=== PATIENT | female | born 1990 | race African-American/Black ===

== ENCOUNTER 2019-09-28 09:05 | Emergency (ER) | payer BC ==
[2019-09-28 10:26] LABS: APPEARANCE,URINE SLIGHTLY-CLOUDY; BILIRUBIN,URINE NEGATIVE (NEGATIVE); COLOR,URINE AMBER; GLUCOSE, URINE NEGATIVE (NEGATIVE); KETONES,URINE NEGATIVE (NEGATIVE); LEUKOCYTE ESTERASE,URINE NEGATIVE (NEGATIVE); NITRITE,URINE NEGATIVE (NEGATIVE); PROTEIN,URINE 30 mg/dL (NEGATIVE); URINE SPECIFIC GRAVITY 1.032
[2019-09-28 11:02] LABS: ABSOLUTE EOSINOPHILS # (AUTO) 0.1 10^3/uL (0.0-0.6); ABSOLUTE LYMPHOCYTES (AUTO) 1.1 10^3/uL (0.5-4.7); ABSOLUTE MONOCYTES (AUTO) 0.4 10^3/uL (0.1-1.4); BASOPHILS % (AUTO) 0.1 % (0-2); EOSINOPHILS % (AUTO) 0.9 % (0-6); HEMATOCRIT 36.9 % (36.0-47.0); HEMOGLOBIN 12.9 g/dL (12.0-15.5); LYMPHOCYTES % (AUTO) 15.1 % (13-45); MEAN CORPUSCULAR HEMOGLOBIN 30.1 pg (27.0-33.4); MEAN CORPUSCULAR HGB CONC 34.9 g/dL (32.0-36.0); MEAN CORPUSCULAR VOLUME 86 fl (80-97); PLATELET COUNT 142 10^3/uL (150-450); RED BLOOD COUNT 4.28 10^6/uL (3.72-5.28); RED CELL DISTRIBUTION WIDTH 12.8 % (11.5-14.0); SEGMENTED NEUTROPHILS % (AUTO) 78.9 % (42-78); TOTAL CELLS COUNTED % (AUTO) 100 %; WHITE BLOOD COUNT 7.6 10^3/uL (4.0-10.5)
[2019-09-28] MEDS ORDERED: NORMAL SALINE 1000 ML 2,000 ML IV ONE (14:41)
[2019-09-28] MEDS ORDERED: PROMETHAZINE HCL 25 MG TABLET PO ONE (14:41)
--- NOTE | 2019-09-28 14:42 | ER Document Report ---
ED GI/ - General Chief Complaint: Vag Bleeding, +preg <12wks Stated Complaint: LIGHTHEADED,VAGINAL BLEEDING Time Seen by Provider: 09/28/19 14:22 Primary Care Provider: JUAN PABLO YODER CRNP [NO LOCAL MD] - Follow up as needed Mode of Arrival: Ambulatory Information source: Patient Notes: Patient is currently 10 weeks G3, P2. Patient reports vaginal bleeding for the past 3 days. Patient does complain of some nausea. Patient denies any concern about STI. Patient is followed up by [facility]. TRAVEL OUTSIDE OF THE [place] IN LAST 30 DAYS: No - HPI Patient complains to provider of: , Vaginal bleeding Onset: Other - 3 days Quality of pain: No pain Pain Level: Denies Vaginal bleeding (Compared to normal period): Green [employer], Dark brown Menstrual period history: Associated symptoms: denies: Dysuria, Fever, Nausea, Urinary hesitancy, Urinary frequency, Urinary retention, Urinary urgency, Vaginal discharge, Vomiting Exacerbated by: Denies Relieved by: Denies Similar symptoms previously: No Recently seen / treated by doctor: No - Related Data Allergies/Adverse Reactions: No Known Allergies Allergy (Verified 09/28/19 09:49) Home Medications: prenatals Past Medical History - General Information source: Patient - Social History Smoking Status: Never Smoker Chew tobacco use (# tins/day): No Frequency of alcohol use: None Drug Abuse: None Occupation: none Family History: Reviewed & Not Pertinent Patient has suicidal ideation: No Patient has homicidal ideation: No - Medical History Medical History: Negative Past Surgical History: Reports: Hx Gynecologic Surgery - ovarian cyst removed Review of Systems - Review of Systems Constitutional: No symptoms reported. denies: Fever EENT: No symptoms reported Cardiovascular: No symptoms reported. denies: Chest pain Respiratory: No symptoms reported Gastrointestinal: Nausea. denies: Abdominal pain, Vomiting Genitourinary: No symptoms reported Female Genitourinary: , Vaginal bleeding. denies: Vaginal discharge Musculoskeletal: No symptoms reported. denies: Back pain Skin: No symptoms reported Hematologic/Lymphatic: No symptoms reported Neurological/Psychological: No symptoms reported Physical Exam - Vital signs Vitals: Temp Pulse Resp BP Pulse Ox 99.1 F 94 18 142/85 H 98 09/28/19 09:22 09/28/19 09:22 09/28/19 09:22 09/28/19 09:22 09/28/19 09:22 - General General appearance: Appears well, Alert In distress: None - HEENT Head: Normocephalic, Atraumatic Eyes: Normal Conjunctiva: Normal Nasal: Normal Mouth/Lips: Normal Mucous membranes: Normal Pharynx: Normal Neck: Normal, Supple. No: Lymphadenopathy - Respiratory Respiratory status: No respiratory distress Chest status: Nontender Breath sounds: Normal. No: Rales, Rhonchi, Stridor, Wheezing Chest palpation: Normal - Cardiovascular Rhythm: Regular Heart sounds: S1 appreciated, S2 appreciated - Abdominal Inspection: Normal Distension: No distension Bowel sounds: Normal Tenderness: Nontender Organomegaly: No organomegaly - Back Back: Normal, Nontender. No: CVA tenderness - Extremities General upper extremity: Normal inspection, Nontender, Normal strength General lower extremity: Normal inspection, Nontender, Normal strength - Neurological Neuro grossly intact: Yes Cognition: Normal [place] Coma Scale Eye Opening: Spontaneous Kiran Coma Scale Verbal: Oriented Kiran Coma Scale Motor: Obeys Commands Kiran Coma Scale Total: 15 - Psychological Associated symptoms: Normal affect, Normal mood - Skin Skin Temperature: Warm Skin Moisture: Dry Skin Color: Normal Course - Re-evaluation Re-evalutation: 09/28/19 16:22 Patient reports light vaginal bleeding at this time. Patient does have a subchorionic hematoma noted on ultrasound and is currently 9 weeks 3 days . Patient with nausea without vomiting. Patient has been taking Diclegis without improvement of her symptoms. Will provide patient with prescription for Phenergan and encourage outpatient follow-up with her [facility] for recheck. - Vital Signs Vital signs: Temp Pulse Resp BP Pulse Ox 98.7 F 77 20 127/77 H 100 09/28/19 16:48 09/28/19 16:48 09/28/19 16:48 09/28/19 16:48 09/28/19 16:48 - Laboratory Result Diagrams: 09/28/19 10:30 Laboratory results interpreted by me: 09/28/19 09/28/19 09/28/19 10:05 10:30 10:30 Plt Count 142 L Seg Neutrophils % 78.9 H Beta HCG, Quant 763200.00 H Urine Protein 30 H Urine Urobilinogen 4.0 H Urine HCG, Qual POSITIVE H 09/28/19 16:22 Labs- Entire Visit 09/28/19 09/28/19 09/28/19 10:05 10:30 10:30 WBC 7.6 RBC 4.28 Hgb 12.9 Hct 36.9 MCV 86 MCH 30.1 MCHC 34.9 RDW 12.8 Plt Count 142 L Lymph % (Auto) 15.1 [place] % (Auto) 5.0 Eos % (Auto) 0.9 Baso % (Auto) 0.1 Absolute Neuts (auto) 6.0 Absolute Lymphs (auto) 1.1 Absolute Monos (auto) 0.4 Absolute Eos (auto) 0.1 Absolute Basos (auto) 0.0 Seg Neutrophils % 78.9 H Beta HCG, Quant Total Beta HCG Urine Color ARACELI Urine Appearance SLIGHTLY-CLOUDY Urine pH 6.0 Ur Specific [place] 1.032 Urine Protein 30 H Urine Glucose (UA) NEGATIVE Urine Ketones NEGATIVE Urine Blood NEGATIVE Urine Nitrite NEGATIVE Urine Bilirubin NEGATIVE Urine Urobilinogen 4.0 H Ur Leukocyte Esterase NEGATIVE Urine WBC (Auto) 1 Urine RBC (Auto) 1 Squamous Epi Cells Auto <1 Urine Mucus (Auto) MANY Urine Ascorbic Acid NEGATIVE Urine HCG, Qual POSITIVE H Blood Type O POSITIVE Rhogam Indicated RHOGAM NOT INDICATED 09/28/19 10:30 WBC RBC Hgb Hct MCV MCH MCHC RDW Plt Count Lymph % (Auto) [place] % (Auto) Eos % (Auto) Baso % (Auto) Absolute Neuts (auto) Absolute Lymphs (auto) Absolute Monos (auto) Absolute Eos (auto) Absolute Basos (auto) Seg Neutrophils % Beta HCG, Quant 044782.00 H Total Beta HCG POSITIVE Urine Color Urine Appearance Urine pH Ur Specific Follett Urine Protein Urine Glucose (UA) Urine Ketones Urine Blood Urine Nitrite Urine Bilirubin Urine Urobilinogen Ur Leukocyte Esterase Urine WBC (Auto) Urine RBC (Auto) Squamous Epi Cells Auto Urine Mucus (Auto) Urine Ascorbic Acid Urine HCG, Qual Blood Type Rhogam Indicated - Diagnostic Test Radiology reviewed: Reports reviewed Discharge - Discharge Clinical Impression: Nausea, Vagina bleeding Subchorionic bleed Qualifiers: Fetus number: single or unspecified fetus Trimester: first trimester Qualified Code(s): O41.8X10 - Other specified disorders of amniotic fluid and membranes, first trimester, not applicable or unspecified Condition: Stable Disposition: HOME, SELF-CARE Instructions: Antinausea Medication ([facility]), Bleeding During Early ([facility]), Intravenous (IV) Fluids ([facility]), Nausea or Vomiting, Nonspecific ([facility]) Additional Instructions: Return immediately for any new or worsening symptoms Followup with your primary care provider, call tomorrow to make a followup appointment Increase oral fluids and stay well-hydrated Prescriptions: Promethazine HCl [Phenergan 25 mg Tablet] 25 mg PO Q6H PRN #10 tablet PRN Reason: Referrals: JUAN PABLO YODER CRNP [NO LOCAL MD] - Follow up as needed
--- NOTE | 2019-09-28 16:14 | RADIOLOGY REPORT (SQ) ---
EXAM DESCRIPTION: U/S OB TRANSVAGINAL W/O DOP COMPLETED DATE/TIME: 09/28/2019 4:03 pm REASON FOR STUDY: vag bleeding COMPARISON: None. TECHNIQUE: Transvaginal static and realtime grayscale images acquired of the pelvis. Additional kali cted spectral and color Doppler images recorded. All images stored on PACs. [id number] CLINICAL DATES: 10 week 1 day LIMITATIONS: None. FINDINGS: FETUS: Single Living intrauterine . ULTRASOUND EGA: 9 week 3 day ULTRASOUND MARCO ANTONIO: 04/29/2020 EFW: Not applicable less than 20 weeks. CRL: 2.6 cm, 9 week 3 day FHR: 175 beats per minute. SURVEY: Too early to assess. AMNIOTIC FLUID: Adequate amount. PLACENTA: Not yet developed due to early gestation. SUBCHORIONIC BLEED: Lower uterine segment hypoechoic region measures 4 cm. SIZE OF BLEED: As above. UTERUS: No masses. No anomalies. CERVICAL LENGTH: 3.7 cm Closed. RIGHT ADNEXA: Normal ovary with normal vascular flow. No adnexal free fluid. 1.7 cm minimally complicated cyst suggested. LEFT ADNEXA: Normal ovary with normal vascular flow. No adnexal free fluid. No adnexal masses. FREE FLUID: None. OTHER: No other significant finding. IMPRESSION: LIVING INTRAUTERINE . LOWER UTERINE SEGMENT 4 CM SUBCHORIONIC HEMATOMA. EGA 9 week 3 day Trimester of : First trimester - 0 to 13 weeks. TECHNICAL DOCUMENTATION: JOB ID: [id number] [employer]- All Rights Reserved rev Reading location - IP/workstation name: [email or web address]
[2019-09-28 16:49] VITALS: BP 127/77
== END 2019-09-28 17:27 | disposition home or self-care (01) ==
LOC: ER 09:05
DX: O46.91 Antepartum hemorrhage, unspecified, first trimester (principal); O26.891 Other specified pregnancy related conditions, first trimester; R42 Dizziness and giddiness; R11.0 Nausea; Z3A.10 10 weeks gestation of pregnancy
CPT/HCPCS: 99284; 96360; 96361; 86900; 86901; 36415; 84702; 85025; 81025; 81001; 76817; J7030

== ENCOUNTER 2020-09-19 09:41 | Emergency (ER) | payer BC ==
--- NOTE | 2020-09-19 10:10 | ER Document Report ---
ED Medical Screen (RME) - General Chief Complaint: Chest Pain Stated Complaint: CHEST PAIN Time Seen by Provider: 09/19/20 10:05 Mode of Arrival: Ambulatory Information source: Patient Notes: HPI; 29-year-old female with no previous medical problems presents to the emergency room complaining of sudden onset of sharp stabbing left-sided chest pain that started around 8 AM this morning. No nausea, no vomiting, no shortness of breath difficulty breathing. No diaphoresis. No trauma no injury. States she took Tylenol without relief. Patient is currently breast-feeding but denies any erythema, swelling, or concerns for mastitis to the left breast. PE: Alert and oriented x3. Lungs: Clear to auscultation without rales, rhonchi, wheezes. Heart: Regular rate rhythm without murmurs, rubs, gallops. I have greeted and performed a rapid initial assessment of this patient. A comprehensive ED assessment and evaluation of the patient, analysis of test results and completion of the medical decision making process will be conducted by additional ED providers. I have specifically instructed the patient or family members with the patient to immediately return to any nursing staff shou ld anything change in the patient's condition or with their chief complaint. TRAVEL OUTSIDE OF THE [place] IN LAST 30 DAYS: No - Related Data Allergies/Adverse Reactions: No Known Allergies Allergy (Verified 09/19/20 09:59) Past Medical History Past Surgical History: Reports: Hx Gynecologic Surgery - ovarian cyst removed Physical Exam - Vital signs Vitals: Temp Pulse Resp BP Pulse Ox 98.1 F 67 16 131/84 H 97 09/19/20 09:50 09/19/20 09:50 09/19/20 09:50 09/19/20 09:50 09/19/20 09:50 Course - Vital Signs Vital signs: Temp Pulse Resp BP Pulse Ox 98.1 F 67 16 131/84 H 97 09/19/20 09:50 09/19/20 09:50 09/19/20 09:50 09/19/20 09:50 09/19/20 09:50
[2020-09-19 10:35] LABS: ABSOLUTE EOSINOPHILS # (AUTO) 0.1 10^3/uL (0.0-0.6); ABSOLUTE LYMPHOCYTES (AUTO) 1.4 10^3/uL (0.5-4.7); ABSOLUTE MONOCYTES (AUTO) 0.3 10^3/uL (0.1-1.4); BASOPHILS % (AUTO) 0.4 % (0-2); EOSINOPHILS % (AUTO) 2.5 % (0-6); HEMATOCRIT 39.4 % (36.0-47.0); HEMOGLOBIN 13.5 g/dL (12.0-15.5); MEAN CORPUSCULAR HEMOGLOBIN 29.3 pg (27.0-33.4); MEAN CORPUSCULAR HGB CONC 34.3 g/dL (32.0-36.0); MEAN CORPUSCULAR VOLUME 85 fl (80-97); MONOCYTES % (AUTO) 6.8 % (3-13); PLATELET COUNT 169 10^3/uL (150-450); RED BLOOD COUNT 4.62 10^6/uL (3.72-5.28); SEGMENTED NEUTROPHILS % (AUTO) 61.3 % (42-78); TOTAL CELLS COUNTED % (AUTO) 100 %
--- NOTE | 2020-09-19 10:42 | RADIOLOGY REPORT (SQ) ---
EXAM DESCRIPTION: CHEST 2 VIEWS IMAGES COMPLETED DATE/TIME: 09/19/2020 10:27 am REASON FOR STUDY: chest pain COMPARISON: None. TECHNIQUE: Frontal and lateral radiographic views of the chest acquired. NUMBER OF VIEWS: Two view. LIMITATIONS: None. FINDINGS: LUNGS AND PLEURA: No opacities, masses or pneumothorax. No pleural effusion. MEDIASTINUM AND HILAR STRUCTURES: No masses or contour abnormalities. HEART AND VASCULAR STRUCTURES: Heart normal size. No evidence for failure. BONES: No acute findings. HARDWARE: None in the chest. OTHER: No other significant finding. IMPRESSION: NO SIGNIFICANT RADIOGRAPHIC FINDING IN THE CHEST. TECHNICAL DOCUMENTATION: JOB ID: [id number] 2010 [employer]- All Rights Reserved Reading location - IP/workstation name: [email or web address]
--- NOTE | 2020-09-19 10:45 | ER Document Report ---
ED Cardiac - General Chief Complaint: Chest Pain Stated Complaint: CHEST PAIN Time Seen by Provider: 09/19/20 10:05 Primary Care Provider: ANDRES,FILI [Primary Care Provider] - Follow up as needed Mode of Arrival: Ambulatory Notes: CHIEF COMPLAINT: Chest pain HPI: 29-year-old female who is otherwise healthy not on any control presenting for evaluation of left-sided chest pain that began around 8 AM this morning while making breakfast. Pain changes with position or movement of the l eft arm deep breathing twisting or turning the torso. Does not radiate into the neck back shoulder or arm. Took no medications for her symptoms. ROS: See HPI - all other systems were reviewed and are otherwise negative Constitutional: no fever Eyes: no drainage, no blurred vision ENT: no runny nose, no sore throat Cardiovascular: + chest pain Resp: no SOB, no cough GI: no vomiting, no diarrhea, no abdominal pain : no dysuria Integumentary: no rash Allergy: no hives Musculoskeletal: no extremity pain or swelling Neurological: no numbness/tingling, no weakness MEDICATIONS: I agree with the patient medications as charted by the RN. ALLERGIES: I agree with the allergies as charted by the RN. PAST MEDICAL HISTORY/PAST SURGICAL HISTORY: Reviewed and agree as charted by RN. SOCIAL HISTORY: Reviewed and agree as charted by RN. FAMILY HISTORY: No significant familial comorbid conditions directly related to patient complaint EXAM: Reviewed vital signs as charted by RN. CONSTITUTIONAL: Alert and oriented and responds appropriately to questions. Well-appearing; well-nourished HEAD: Normocephalic; atraumatic EYES: PERRL; Conjunctivae clear, sclerae non-icteric ENT: normal nose; no rhinorrhea; moist mucous membranes; pharynx without lesions noted, no uvula edema or deviation, no tonsillar hypertrophy, phonation normal NECK: Supple without meningismus; non-tender; no cervical lymphadenopathy, no masses CARD: RRR; no murmurs, no clicks, no rubs, no gallops; symmetric distal pulses RESP: Normal chest excursion without splinting or tachypnea; breath sounds clear and equal bilaterally; no wheezes, no rhonchi, no rales, pulse oximetry 99% on room air not hypoxic. No reproducible pain over the left upper anterior chest wall on palpation but increased discomfort with movement of the left arm at the shoulder ABD/GI: Normal bowel sounds; non-distended; soft, non-tender, no rebound, no guarding; no palpable organomegaly or masses. BACK: The back appears normal and is non-tender to palpation, there is no CVA tenderness EXT: Normal ROM in all joints; non-tender to palpation; no cyanosis, no effusions, no edema SKIN: Normal color for age and race; warm; dry; good turgor; no acute lesions noted NEURO: Moves all extremities equally; Motor and sensory function intact PSYCH: The patient's mood and manner are appropriate. Grooming and personal hygiene are appropriate. MDM: 29-year-old female with what appears to be a musculoskeletal type chest pain. It hurts to move the left arm at the shoulder. Not reproducible to palpation of the chest wall. Chest x-ray on my review does not reveal evidence of infiltrate or pneumothorax. Initial screening lab work placed via the triage process.. EKG normal sinus rhythm with a ventricular rate of 67 NJ 156, QT 412, QTc 435. No other ectopy is noted. Normal EKG. interpreted by ER TRAVEL OUTSIDE OF THE [place] IN LAST 30 DAYS: No - Related Data Allergies/Adverse Reactions: No Known Allergies Allergy (Verified 09/19/20 09:59) Past Medical History - General Information source: Patient - Social History Smoking Status: Never Smoker Family History: Reviewed & Not Pertinent Past Surgical History: Reports: Hx Gynecologic Surgery - ovarian cyst removed Physical Exam - Vital signs Vitals: Temp Pulse Resp BP Pulse Ox 98.1 F 67 16 131/84 H 97 09/19/20 09:50 09/19/20 09:50 09/19/20 09:50 09/19/20 09:50 09/19/20 09:50 Course - Re-evaluation Re-evalutation: 09/19/20 11:30 Troponin lab work did not show acute emergent abnormalities I suspect this is musculoskeletal in nature. Will place patient on [facility], follow-up PCP. I have low suspicion for ACS and is otherwise healthy 29-year-old. She has no pleuritic discomfort or shortness of breath complaint suggesting a PE, PERC negative - Vital Signs Vital signs: Temp Pulse Resp BP Pulse Ox 98.1 F 67 16 131/84 H 97 09/19/20 09:50 09/19/20 09:50 09/19/20 09:50 09/19/20 09:50 09/19/20 09:50 - Laboratory Result Diagrams: 09/19/20 10:13 09/19/20 10:13 Discharge - Discharge Clinical Impression: Chest pain Qualifiers: Chest pain type: other chest pain Qualified Code(s): R07.89 - Other chest pain; R07.8 - Other chest pain Disposition: HOME, SELF-CARE Additional Instructions: Take the Voltaren as prescribed. Warm heat to the left chest shoulder region several times daily. Your initial lab work, chest x-ray, EKG did not show acute emergent abnormalities. Follow-up with your primary care provider for further evaluation and treatment call for appointment. If you develop worsening symptoms or significant shortness of breath return for reevaluation Prescriptions: Diclofenac Sodium [Voltaren 50 Mg Tablet.] 50 mg PO BID #20 tablet. Referrals: ALAN MCINTYRE MD [[facility]] - Follow up as needed
[2020-09-19 10:52] LABS: ALBUMIN 4.4 g/dL (3.5-5.0); ALKALINE PHOSPHATASE 88 U/L (38-126); ANION GAP 7 (5-19); ASPARTATE AMINO TRANSFERASE 21 U/L (14-36); BILIRUBIN,TOTAL 0.4 mg/dL (0.2-1.3); BLOOD UREA NITROGEN 15 mg/dL (7-20); CALCIUM 9.4 mg/dL (8.4-10.2); CARBON DIOXIDE 26 mmol/L (22-30); CHLORIDE 105 mmol/L (98-107); GLUCOSE 91 mg/dL (75-110); POTASSIUM 4.5 mmol/L (3.6-5.0); TOTAL PROTEIN 7.5 g/dL (6.3-8.2)
[2020-09-19 11:52] VITALS: BP 120/72
--- NOTE | 2020-09-20 08:15 | EKG REPORT ---
SEVERITY:- NORMAL ECG - SINUS RHYTHM : Confirmed by: Melanie Mina 20-Sep-2020 08:13:37
== END 2020-09-19 11:50 | disposition home or self-care (01) ==
LOC: ER 09:41
DX: R07.89 Other chest pain (principal); M54.2 Cervicalgia; M54.9 Dorsalgia, unspecified; R07.9 Chest pain, unspecified
CPT/HCPCS: 36415; 71046; 80053; 84484; 85025; 93005; 93010; 99285